=== PATIENT | male | born 1950 | race Caucasian/White ===

== ENCOUNTER 2018-08-14 15:28 | Emergency (ER) | payer OTHER ==
[~2018-08-14] VITALS: Ht 193 cm; Wt 83.0 kg
--- NOTE | 2018-08-14 15:35 | NUR ---
BIBRA 89 C/O LEFT FLANK PAIN, 06/29. PATIENT HAS HX OF KIDNEY STONES. TOOK NORCO 5MG AT 1200 AND MOTRIN 600MG AT 1300 WITH NO RELIEF. A/OX 4, BREATHING EVEN AND UNLABORED. NO SOB, NAD, VITALS STABLE. SAFETY AND COMFORT MEASURES IN PLACE. AWAITING MD ORDERS
--- NOTE | 2018-08-14 15:40 | NUR ---
AT BEDSIDE FOR EVAL.
[2018-08-14] MEDS ORDERED: MORPHINE SULFATE INJ 4 MG/ML DISP.SYRIN ONE (15:56)
[2018-08-14] MEDS ORDERED: ONDANSETRON HCL/PF 4 MG/2 ML VIAL ONE (15:56)
[2018-08-14] MEDS ORDERED: KETOROLAC TROMETHAMINE INJ 30 MG/ML VIAL ONE (15:56)
[2018-08-14] MEDS ORDERED: MORPHINE SULFATE INJ 2 MG/ML DISP.SYRIN IV ONE (16:00)
[2018-08-14] MEDS ORDERED: ONDANSETRON HCL/PF - ER 4 MG/2 ML VIAL IV ONE (16:00)
[2018-08-14] MEDS ORDERED: KETOROLAC TROMETHAMINE INJ 30 MG/ML VIAL IV ONE (16:00)
--- NOTE | 2018-08-14 16:05 | NUR ---
NEW IV STARTED ON LAC, 18G. BLOOD DRAWN AND SENT TO LAB.
[2018-08-14 16:06] LABS: BASOPHILS % (AUTO) 0.4 % (0.0-2.0); EOSINOPHILS % (AUTO) 0.7 % (0.0-6.0); HEMATOCRIT 42 % (39-51); HEMOGLOBIN 13.7 g/dL (13.5-17.5); LYMPHOCYTES # (AUTO) 0.8 /CMM (0.8-4.8); LYMPHOCYTES % (AUTO) 10.2 % (20.0-44.0); MEAN CORPUSCULAR HGB CONC 33 g/dl (31.0-36.0); MEAN CORPUSCULAR VOLUME 89 fL (80-96); MONOCYTES # (AUTO) 0.6 /CMM (0.1-1.30); MONOCYTES % (AUTO) 7.6 % (2.0-12.0); NEUTROPHILS # (AUTO) 5.9 /CMM (1.8-8.9); NEUTROPHILS % (AUTO) 81.1 % (43.0-81.0); PLATELET COUNT (AUTO) 154 /CMM (150-450); RDW COEFFICIENT OF VARIATION 12.3 (11.5-15.0); RED BLOOD CELL COUNT(AUTO) 4.68 MIL/uL (4.5-6.0); WHITE BLOOD COUNT (AUTO) 7.4 K/uL (4.3-11.0)
--- NOTE | 2018-08-14 16:10 | NUR ---
PATIENT MEDICATED PER MD ORDERS.
[2018-08-14 16:15] LABS: CALCIUM, SERUM 8.3 mg/dL (8.5-10.1); CREATININE 1.1 mg/dL (0.6-1.3); POTASSIUM 3.7 mmol/L (3.5-5.1)
[2018-08-14 16:22] LABS: ALBUMIN 3.4 g/dL (3.4-5.0); BILIRUBIN,DIRECT 0.2 mg/dL (0.0-0.2); BILIRUBIN,TOTAL 0.8 mg/dL (0.2-1.0); TOTAL PROTEIN, SERUM 6.2 g/dL (6.4-8.2)
[2018-08-14 16:58] VITALS: BP 118/75
--- NOTE | 2018-08-14 17:00 | NUR ---
IV removed. Catheter intact and site benign. Pressure and 4x4 applied to site. No bleeding noted.Patient discharged to home in stable condition. Written and verbal after care instructions given. Patient verbalizes understanding of instruction.
== END 2018-08-14 17:12 | disposition home or self-care (01) ==
LOC: ER 15:32
DX: N23 Unspecified renal colic (principal); F10.10 Alcohol abuse, uncomplicated; N40.0 Benign prostatic hyperplasia without lower urinary tract symptoms; Y90.9 Presence of alcohol in blood, level not specified; Z87.442 Personal history of urinary calculi; Z98.890 Other specified postprocedural states
CPT/HCPCS: 80048; 80076; 83690; 85025; 96374; 96375; 99284; A4606; J1885; J2270; J2405 ×2; Z7610

== ENCOUNTER 2019-06-26 04:02 | Emergency (ER) | payer OTHER, MEDICAID ==
[~2019-06-26] VITALS: Ht 193 cm; Wt 79.4 kg
--- NOTE | 2019-06-26 04:05 | NUR ---
TO BED 4 BIB PARAMEDICS C/OP LOWER ABDOMINAL PAIN SINCE MIDNIGHT. HX OF KIDNEY STONES. PT AAOX4 NO ACUTE DISTRESS NOTED, RESP EVEN AND UNLABORED. PT UNABLE TO PROVIDE URINE SAMPLE AT THIS TIME. PENDING ER MD STORM.
--- NOTE | 2019-06-26 04:07 | NUR ---
ER MD AT BEDSIDE TO EVAL PT WITH ORDERS RECEIVED.
[2019-06-26] MEDS ORDERED: KETOROLAC TROMETHAMINE INJ 30 MG/ML VIAL ONE (04:20)
[2019-06-26] MEDS ORDERED: ONDANSETRON HCL/PF 4 MG/2 ML VIAL ONE (04:20)
[2019-06-26] MEDS ORDERED: ONDANSETRON HCL/PF 4 MG/2 ML VIAL IVP ONE (04:30)
[2019-06-26] MEDS ORDERED: KETOROLAC TROMETHAMINE INJ 30 MG/ML VIAL IV ONE (04:30)
[2019-06-26] MEDS ORDERED: IV NS 0.9% 1,000 ML BAG IV ONE (04:30)
--- NOTE | 2019-06-26 04:34 | NUR ---
pt had a norco at home which reduced his pain level hence toradol is held per pt's request. made aware
[2019-06-26 04:46] LABS: BASOPHILS % (AUTO) 0.8 % (0.0-2.0); EOSINOPHILS % (AUTO) 1.7 % (0.0-6.0); HEMATOCRIT 43 % (39-51); HEMOGLOBIN 14.3 g/dL (13.5-17.5); LYMPHOCYTES # (AUTO) 1.4 /CMM (0.8-4.8); LYMPHOCYTES % (AUTO) 28.6 % (20.0-44.0); MEAN CORPUSCULAR HGB CONC 33 g/dl (31.0-36.0); MEAN CORPUSCULAR VOLUME 89 fL (80-96); MONOCYTES # (AUTO) 0.4 /CMM (0.1-1.30); MONOCYTES % (AUTO) 7.8 % (2.0-12.0); NEUTROPHILS % (AUTO) 61.1 % (43.0-81.0); PLATELET COUNT (AUTO) 166 /CMM (150-450); RED BLOOD CELL COUNT(AUTO) 4.84 MIL/uL (4.5-6.0); WHITE BLOOD COUNT (AUTO) 4.9 K/uL (4.3-11.0)
[2019-06-26 04:59] LABS: ALBUMIN 3.4 g/dL (3.4-5.0); BILIRUBIN,DIRECT 0.1 mg/dL (0.0-0.2); BILIRUBIN,TOTAL 0.6 mg/dL (0.2-1.0); CALCIUM, SERUM 8.9 mg/dL (8.5-10.1); CREATININE 0.9 mg/dL (0.6-1.3); POTASSIUM 3.5 mmol/L (3.5-5.1); TOTAL PROTEIN, SERUM 6.5 g/dL (6.4-8.2)
[2019-06-26 05:10] LABS: APPEARANCE,URINE Slightly Cloudy (CLEAR); BILIRUBIN,URINE Negative (NEGATIVE); BLOOD, URINE Large Ery/uL (NEGATIVE); COLOR,URINE Yellow (YELLOW); KETONES,URINE 15 (NEGATIVE); LEUKOCYTE ESTERASE ,URINE Moderate (NEGATIVE); NITRITE, URINE Negative (NEGATIVE); PROTEIN,URINE Trace mg/dl (NEGATIVE); UGLUCOSE Negative (NEGATIVE); UROBILINOGEN,URINE 0.2 EU/dL (0.2)
[2019-06-26 05:18] LABS: BACTERIA,URINE None seen /HPF (None Seen); SQUAMOUS EPITHELIAL CELL,UR Few /HPF (None Seen)
--- NOTE | 2019-06-26 05:52 | NUR ---
US TECH AT THE BED SIDE
--- NOTE | 2019-06-26 06:22 | NUR ---
Patient is resting comfortably in bed with eyes closed. Easily aroused. VSS
--- NOTE | 2019-06-26 08:00 | NUR ---
PATIENT AA/OX4, BREATHING EVEN AND UNLABORED, NO SOB NOTED. DENIES PAIN AT THIS TIME. IV removed. Catheter intact and site benign. Pressure and 4x4 applied to site. No bleeding noted. Patient discharged to home in stable condition. Written and verbal after care instructions given. Patient verbalizes understanding of instruction.
[2019-06-26 08:06] VITALS: BP 112/75
== END 2019-06-26 08:06 | disposition home or self-care (01) ==
LOC: ER 04:03
DX: R10.30 Lower abdominal pain, unspecified (principal); F10.10 Alcohol abuse, uncomplicated; Y90.9 Presence of alcohol in blood, level not specified; Z87.442 Personal history of urinary calculi
CPT/HCPCS: 36415; 74176; 76770; 80048; 80076; 81001; 85025; 87077; 87086; 87186; 96374; 96375; 99284; J1885; J2405; J7030; 81000-TC

== ENCOUNTER 2019-11-22 04:44 | Emergency (ER) | payer OTHER, MEDICAID ==
[~2019-11-22] VITALS: Ht 193 cm; Wt 79.4 kg
--- NOTE | 2019-11-22 05:03 | NUR ---
SEEN AND EXAMINED BY
[2019-11-22 05:58] LABS: BASOPHILS % (AUTO) 0.4 % (0.0-2.0); EOSINOPHILS % (AUTO) 0.6 % (0.0-6.0); HEMATOCRIT 41 % (39-51); HEMOGLOBIN 13.4 g/dL (13.5-17.5); LYMPHOCYTES # (AUTO) 0.8 /CMM (0.8-4.8); LYMPHOCYTES % (AUTO) 11.5 % (20.0-44.0); MEAN CORPUSCULAR HGB CONC 33 g/dl (31.0-36.0); MEAN CORPUSCULAR VOLUME 89 fL (80-96); MONOCYTES # (AUTO) 0.5 /CMM (0.1-1.30); MONOCYTES % (AUTO) 6.9 % (2.0-12.0); NEUTROPHILS # (AUTO) 5.9 /CMM (1.8-8.9); NEUTROPHILS % (AUTO) 80.6 % (43.0-81.0); PLATELET COUNT (AUTO) 167 /CMM (150-450); RED BLOOD CELL COUNT(AUTO) 4.62 MIL/uL (4.5-6.0); WHITE BLOOD COUNT (AUTO) 7.3 K/uL (4.3-11.0)
--- NOTE | 2019-11-22 06:05 | NUR ---
PT CAME TO ER BED 7 WITH C/O SHARP ABDOMINAL PAIN. PT STATES THAT HE HAS A HX OF GALLBLADDER STONES AND ENLARGED PROSTATE. PT CURRENTLY DENIES PAIN. UNABLE TO PROVIDE URINE AT THIS TIME. AAOX.4 NO SOB. BREATHING EVENLY ND UNLABORED. CONNECTED TO THE MONITOR
[2019-11-22 06:08] LABS: CALCIUM, SERUM 8.6 mg/dL (8.5-10.1); CREATININE 0.9 mg/dL (0.6-1.3); POTASSIUM 3.9 mmol/L (3.5-5.1)
--- NOTE | 2019-11-22 06:09 | NUR ---
URINE COLLECTED AND SENT TO LAB
[2019-11-22 06:13] LABS: APPEARANCE,URINE Cloudy (CLEAR); BILIRUBIN,URINE Negative (NEGATIVE); BLOOD, URINE Large Ery/uL (NEGATIVE); COLOR,URINE Dark (YELLOW); KETONES,URINE Negative (NEGATIVE); LEUKOCYTE ESTERASE ,URINE Large (NEGATIVE); NITRITE, URINE Negative (NEGATIVE); PROTEIN,URINE 30 mg/dl (NEGATIVE); UGLUCOSE Negative (NEGATIVE); UROBILINOGEN,URINE 0.2 EU/dL (0.2)
[2019-11-22 06:20] LABS: ALBUMIN 3.4 g/dL (3.4-5.0); BILIRUBIN,DIRECT 0.1 mg/dL (0.0-0.2); BILIRUBIN,TOTAL 0.5 mg/dL (0.2-1.0); TOTAL PROTEIN, SERUM 6.5 g/dL (6.4-8.2)
[2019-11-22 07:44] LABS: BACTERIA,URINE Moderate /HPF (None Seen); RBC,URINE TOO NUMEROUS TO COUN /HPF (0-2); WBC,URINE 21-50 /HPF (0-3)
[2019-11-22 07:45] LABS: SQUAMOUS EPITHELIAL CELL,UR Rare /HPF (None Seen)
[2019-11-22 08:21] VITALS: BP 111/68
== END 2019-11-22 08:22 | disposition home or self-care (01) ==
LOC: ER 04:45
DX: R10.31 Right lower quadrant pain (principal); N40.0 Benign prostatic hyperplasia without lower urinary tract symptoms; Z87.442 Personal history of urinary calculi
CPT/HCPCS: 36415; 80048-TC; 80076-TC; 81000-TC; 83690-TC; 85025-TC; 87086-TC; 87186-TC

== ENCOUNTER 2020-01-08 12:46 | Emergency (ER) | payer OTHER, MEDICAID ==
[~2020-01-08] VITALS: Ht 193 cm; Wt 81.6 kg
--- NOTE | 2020-01-08 13:18 | NUR ---
c/o RLQ pain started 10am, Hx of kidney stone, / ps took norco 5/325 mg 1 tab not helping. Patient a/ox4, breathing even and unlabored, no sob noted, will continue to monitor.
--- NOTE | 2020-01-08 13:45 | NUR ---
PATIENT TAKEN TO CT
[2020-01-08] MEDS ORDERED: ONDANSETRON HCL/PF 4 MG/2 ML VIAL IVP ONE (14:00)
[2020-01-08] MEDS ORDERED: KETOROLAC TROMETHAMINE INJ 30 MG/ML VIAL IV ONE ×2 (14:00→15:30)
[2020-01-08] MEDS ORDERED: IV NS 0.9% 500 ML BAG IV ONE (14:00)
[2020-01-08] MEDS ORDERED: KETOROLAC TROMETHAMINE 15 MG/ML VIAL ONE (14:05)
[2020-01-08] MEDS ORDERED: ONDANSETRON HCL/PF 4 MG/2 ML VIAL ONE (14:06)
[2020-01-08 14:08] LABS: BASOPHILS % (AUTO) 0.2 % (0.0-2.0); HEMATOCRIT 43 % (39-51); HEMOGLOBIN 13.8 g/dL (13.5-17.5); LYMPHOCYTES # (AUTO) 0.4 /CMM (0.8-4.8); LYMPHOCYTES % (AUTO) 3.5 % (20.0-44.0); MEAN CORPUSCULAR HGB CONC 32 g/dl (31.0-36.0); MEAN CORPUSCULAR VOLUME 90 fL (80-96); MONOCYTES # (AUTO) 0.6 /CMM (0.1-1.30); NEUTROPHILS % (AUTO) 91.3 % (43.0-81.0); PLATELET COUNT (AUTO) 170 /CMM (150-450); RED BLOOD CELL COUNT(AUTO) 4.75 MIL/uL (4.5-6.0)
[2020-01-08 14:17] LABS: CALCIUM, SERUM 8.8 mg/dL (8.5-10.1); CREATININE 1.1 mg/dL (0.6-1.3)
[2020-01-08 14:23] LABS: ALBUMIN 3.3 g/dL (3.4-5.0); BILIRUBIN,DIRECT 0.1 mg/dL (0.0-0.2); BILIRUBIN,TOTAL 0.6 mg/dL (0.2-1.0); TOTAL PROTEIN, SERUM 6.5 g/dL (6.4-8.2)
[2020-01-08 14:28] LABS: APPEARANCE,URINE Clear (CLEAR); BILIRUBIN,URINE Negative (NEGATIVE); BLOOD, URINE Moderate Ery/uL (NEGATIVE); COLOR,URINE Yellow (YELLOW); KETONES,URINE 15 (NEGATIVE); LEUKOCYTE ESTERASE ,URINE Small (NEGATIVE); NITRITE, URINE Negative (NEGATIVE); PROTEIN,URINE 30 mg/dl (NEGATIVE); UGLUCOSE Negative (NEGATIVE); UROBILINOGEN,URINE 0.2 EU/dL (0.2)
[2020-01-08 14:29] LABS: BACTERIA,URINE Few /HPF (None Seen); SQUAMOUS EPITHELIAL CELL,UR Rare /HPF (None Seen)
--- NOTE | 2020-01-08 14:34 | NUR ---
CALLED DR. MAITE GARCES [phone]
--- NOTE | 2020-01-08 15:13 | NUR ---
CALLED DR. MAITE GARCES [phone]
[2020-01-08] MEDS ORDERED: KETOROLAC TROMETHAMINE INJ 30 MG/ML VIAL ONE (15:44)
--- NOTE | 2020-01-08 16:13 | NUR ---
[place] BECKI [phone]
--- NOTE | 2020-01-08 16:57 | NUR ---
GOT BED 114-2
--- NOTE | 2020-01-08 17:12 | NUR ---
per md, keep patient NPO
--- NOTE | 2020-01-08 17:29 | NUR ---
REPORT GIVEN TO ANABEL BECK FOR SHERRELL.
--- NOTE | 2020-01-08 17:30 | NUR ---
CALL BACK FROM DR BUTTERFIELD, SPOKE WITH DR MONTENEGRO,ADMISSION CANCELLED. DR BUTTERFIELD WANTS PATIENT TRANSFERED SINCE HOSPITAL IS NOT EQUIPPED FOR LITHOTRIPSY.
[2020-01-08] MEDS ORDERED: TAMS-12 PO (17:34)
[2020-01-08] MEDS ORDERED: HYDR-3980 PO (17:34)
[2020-01-08] MEDS ORDERED: ONDA4TAB11 PO (17:34)
--- NOTE | 2020-01-08 18:34 | NUR ---
SPOKE WITH BECKI FOR CASE TO BE CANCELED FOR TONIGHT. CALLED HOUSE SUP TO INFORM.
--- NOTE | 2020-01-08 18:45 | NUR ---
SPOKE WITH DESTIN HYDE ANGLE SHEAR SET UP OPERATOR WORKING NOW UNTIL 2299, PATIENT WILL BE TX TO [facility],JUST WAITING ON HOSPITALIST TO SPEAK WITH DR MONTENEGRO. MARY ELLEN'S DIRECT LINE IS [phone]
--- NOTE | 2020-01-08 20:02 | NUR ---
Patient is resting comfortably in bed with eyes closed. Easily aroused. VSS.
--- NOTE | 2020-01-08 20:24 | NUR ---
PT ACCEPTED TO [facility] BY DR OMER. ROOM 742. # FOR REPORT [phone]. PENDING ETA.
--- NOTE | 2020-01-08 20:33 | NUR ---
[facility] E[facility]: [phone] [facility]
--- NOTE | 2020-01-08 21:22 | NUR ---
REPORT GIVEN TO EBONY MONTE FOR SHERRELL
[2020-01-08 22:54] VITALS: BP 122/70
--- NOTE | 2020-01-08 22:54 | NUR ---
REPORT GIVEN TO TRANSPORT
== END 2020-01-08 22:54 | disposition home or self-care (01) ==
LOC: ER 12:46 → MEDSG1 17:25 → UNDOADMIN 17:25 → ER 22:54
DX: N13.5 Crossing vessel and stricture of ureter without hydronephrosis (principal); N20.1 Calculus of ureter; Z87.442 Personal history of urinary calculi; Z79.899 Other long term (current) drug therapy
CPT/HCPCS: 36415; 74176; 80048; 80076; 81001; 83690; 85025; 85730; 96374; 96375; 96376; 99285; J1885 ×2; J2405; J7030; J7040; 81000-TC

== ENCOUNTER 2020-02-01 01:16 | Emergency (ER) | payer OTHER, MEDICAID ==
[~2020-02-01] VITALS: Ht 193 cm; Wt 81.6 kg
[~2020-02-01 01:16] MED LIST: HYDR-3980 PO; ONDA4TAB11 PO; TAMS-12 PO
[2020-02-01] MEDS ORDERED: KETOROLAC TROMETHAMINE 15 MG/ML VIAL ONE (01:31)
[2020-02-01] MEDS: KETOROLAC TROMETHAMINE INJ 30 MG/ML VIAL IV ONE (01:31)
[2020-02-01] MEDS ORDERED: ONDANSETRON HCL/PF 4 MG/2 ML VIAL ONE (01:31)
[2020-02-01] MEDS: ONDANSETRON HCL/PF 4 MG/2 ML VIAL IVP ONE (01:32)
[2020-02-01 01:45] LABS: BASOPHILS % (AUTO) 0.6 % (0.0-2.0); EOSINOPHILS % (AUTO) 1.2 % (0.0-6.0); HEMATOCRIT 41 % (39-51); LYMPHOCYTES % (AUTO) 24.7 % (20.0-44.0); MEAN CORPUSCULAR HGB CONC 32 g/dl (31.0-36.0); MEAN CORPUSCULAR VOLUME 89 fL (80-96); MONOCYTES # (AUTO) 0.7 /CMM (0.1-1.30); MONOCYTES % (AUTO) 8.3 % (2.0-12.0); NEUTROPHILS # (AUTO) 5.2 /CMM (1.8-8.9); NEUTROPHILS % (AUTO) 65.2 % (43.0-81.0); PLATELET COUNT (AUTO) 218 /CMM (150-450); RED BLOOD CELL COUNT(AUTO) 4.61 MIL/uL (4.5-6.0)
[2020-02-01 01:53] LABS: CALCIUM, SERUM 8.7 mg/dL (8.5-10.1); CREATININE 1.1 mg/dL (0.6-1.3); POTASSIUM 3.8 mmol/L (3.5-5.1)
--- NOTE | 2020-02-01 01:54 | NUR ---
PATIENT CAME TO ER BED 2 C/O LEFT FLANK PAIN SINCE 2199. PATIENT STATES THAT HE HAS HX OF KIDNEY STONES. PATIENT TOOK NORCO, WITH UNKNOWN DOSAGE FOR PAIN WITH NO RELIEF. AAOX4. NO SOB. BREATHING EVENLY AND UNLABORED ON ROOM AIR. CONNECTED TO MONITOR.
[2020-02-01] MEDS ORDERED: CT SWABBABLE VALVE TRANS SET 1 EA INFUS.SET MC ONE (02:04)
[2020-02-01] MEDS ORDERED: IV NS 0.9% 250 ML IV ONE (02:04)
[2020-02-01] MEDS ORDERED: IOHEXOL-300 100 ML VIAL IV ONE (02:04)
--- NOTE | 2020-02-01 02:10 | NUR ---
PATIENT TO CT
[2020-02-01 02:29] LABS: APPEARANCE,URINE Cloudy (CLEAR); BILIRUBIN,URINE Negative (NEGATIVE); BLOOD, URINE Moderate Ery/uL (NEGATIVE); COLOR,URINE Light yellow (YELLOW); KETONES,URINE Negative (NEGATIVE); LEUKOCYTE ESTERASE ,URINE Large (NEGATIVE); NITRITE, URINE Negative (NEGATIVE); PH,URINE 7.5 (5.0-8.0); PROTEIN,URINE 30 mg/dl (NEGATIVE); UGLUCOSE Negative (NEGATIVE); UROBILINOGEN,URINE 0.2 EU/dL (0.2)
[2020-02-01] MEDS ORDERED: MORPHINE SULFATE INJ 4 MG/ML DISP.SYRIN ONE (02:47)
[2020-02-01] MEDS ORDERED: MORPHINE SULFATE INJ 2 MG/ML DISP.SYRIN ONE (02:47)
[2020-02-01] MEDS: MORPHINE SULFATE INJ 2 MG/ML DISP.SYRIN IV ONE (02:52)
[2020-02-01 03:00] LABS: RBC,URINE 20-25 /HPF (0-2); WBC,URINE 21-50 /HPF (0-3)
[2020-02-01 03:01] LABS: BACTERIA,URINE Few /HPF (None Seen); SQUAMOUS EPITHELIAL CELL,UR Rare /HPF (None Seen)
--- NOTE | 2020-02-01 04:13 | NUR ---
PAGED PT'S UROLOGIST, DR. MAITE GARCES
[2020-02-01] MEDS ORDERED: HYDROMORPHONE 1 MG/1 ML DISP.SYRIN ONE ×2 (04:24→07:39)
[2020-02-01] MEDS: HYDROMORPHONE INJ 0.5 MG/0.5 ML SYRINGE IV ONE ×2 (04:29→07:43)
--- NOTE | 2020-02-01 05:09 | NUR ---
PAGED DR. MAITE GARCES
--- NOTE | 2020-02-01 05:13 | NUR ---
PATIENT IS ASLEEP. EASILY AROUSED THROUGH TACTILE AND VERBAL STIMULI. BREATHING EVENLY AND UNLABORED ON ROOM AIR. CONNECTED TO MONITOR. CALL LIGHT WITHIN REACH. GIVEN WARM BLANKET FOR COMFORT.
--- NOTE | 2020-02-01 05:55 | NUR ---
CLINICAL INFORMATION GIVEN TO [facility] PRINT DESIGNER ARNOL . PER ARNOL, PT MOST LIKELY GETTING TRANSFERRED DEPENDING ON BED AVAILABILITY.
--- NOTE | 2020-02-01 07:20 | NUR ---
[facility] GOING TO [facility] 757 CALL [phone] X [phone] PER ARNOL. ACCEPTING MD IS BARN.
--- NOTE | 2020-02-01 07:29 | NUR ---
[facility] ETA [phone]
--- NOTE | 2020-02-01 07:37 | NUR ---
Report given to Ortiz BECK for SHERRELL.
[2020-02-01 09:45] VITALS: BP 165/88
--- NOTE | 2020-02-01 09:47 | NUR ---
report given to ji emt for transport to [facility]. all belongings and chart sent with patient.
== END 2020-02-01 09:48 | disposition short-term general hospital (02) ==
LOC: ER 01:17
DX: N20.0 Calculus of kidney (principal); K57.32 Diverticulitis of large intestine without perforation or abscess without bleeding
CPT/HCPCS: 36415; 74177; 80048; 81001; 85025; 87086; 96374; 96375; 96376; 99285; J1170 ×2; J1885; J2270 ×2; J2405; J7050; Q9967; 81000-TC

== ENCOUNTER 2020-04-15 13:45 | Emergency (ER) | payer OTHER ==
[~2020-04-15] VITALS: Ht 193 cm; Wt 79.4 kg
--- NOTE | 2020-04-15 13:50 | NUR ---
right eye pain and noted pus x 1 week. Patient a/ox4, breathing even and unlabored, no sob noted. Needs attended. Kept comfortable.
--- NOTE | 2020-04-15 14:17 | NUR ---
Patient discharged to home in stable condition. Written and verbal after care instructions given. Patient verbalizes understanding of instruction.
[2020-04-15 14:18] VITALS: BP 112/69
== END 2020-04-15 14:18 | disposition home or self-care (01) ==
LOC: ER 13:45
DX: H57.89 Other specified disorders of eye and adnexa (principal); Z79.899 Other long term (current) drug therapy

== ENCOUNTER 2020-07-13 17:37 | Emergency (ER) | payer OTHER, MEDICAID ==
[~2020-07-13] VITALS: Ht 193 cm; Wt 77.1 kg
--- NOTE | 2020-07-13 18:24 | NUR ---
PT TO CT ON KATRINA
[2020-07-13 18:26] LABS: BASOPHILS # (AUTO) 0.1 /CMM (0.0-0.2); BASOPHILS % (AUTO) 0.8 % (0.0-2.0); EOSINOPHILS % (AUTO) 1.6 % (0.0-6.0); HEMATOCRIT 37 % (39-51); LYMPHOCYTES # (AUTO) 1.7 /CMM (0.8-4.8); LYMPHOCYTES % (AUTO) 26.8 % (20.0-44.0); MEAN CORPUSCULAR HGB CONC 32 g/dl (31.0-36.0); MEAN CORPUSCULAR VOLUME 85 fL (80-96); MONOCYTES # (AUTO) 0.7 /CMM (0.1-1.30); MONOCYTES % (AUTO) 10.9 % (2.0-12.0); NEUTROPHILS # (AUTO) 3.8 /CMM (1.8-8.9); NEUTROPHILS % (AUTO) 59.9 % (43.0-81.0); PLATELET COUNT (AUTO) 181 /CMM (150-450); RED BLOOD CELL COUNT(AUTO) 4.35 MIL/uL (4.5-6.0); WHITE BLOOD COUNT (AUTO) 6.4 K/uL (4.3-11.0)
[2020-07-13 18:37] LABS: CALCIUM, SERUM 8.7 mg/dL (8.5-10.1); CREATININE 1.6 mg/dL (0.6-1.3); POTASSIUM 4.2 mmol/L (3.5-5.1)
--- NOTE | 2020-07-13 18:39 | NUR ---
BIBS FROM HOME TO ER BED 7. AAOX4. NOT IN RESP DISTRESS, AMBULATORY. CAME IN FOR L FLANK PAIN FOR THE PAST 5 DAYS PROGRESSIVELY GETTING WORSE BEING TODAY THE WORST. PAIN IS 7/10 SHARP THROBBING DESCRIBED IF HE IS PASSING A KIDNEY STONE. MD AT BEDSIDE FOR EVAL. ORDERS RECEIVED NOTED AND CARRIED OUT. IV LINE ESTABLISHED ON LFA 18G. BLOOD DRAWNA AND GIVEN TO BEAUTY OPERATOR
[2020-07-13 18:42] LABS: ALBUMIN 3.4 g/dL (3.4-5.0); BILIRUBIN,DIRECT 0.1 mg/dL (0.0-0.2); BILIRUBIN,TOTAL 0.4 mg/dL (0.2-1.0); TOTAL PROTEIN, SERUM 7.2 g/dL (6.4-8.2)
--- NOTE | 2020-07-13 19:05 | NUR ---
dr petersen called,tx to dr quiroz
--- NOTE | 2020-07-13 19:29 | NUR ---
Patient discharged to home in stable condition. Written and verbal after care instructions given. Patient verbalizes understanding of instruction.IV removed. Catheter intact and site benign. Pressure and 4x4 applied to site. No bleeding noted. Pt ambulatory with a steady gait
[2020-07-13 19:31] VITALS: BP 120/71
== END 2020-07-13 19:31 | disposition home or self-care (01) ==
LOC: ER 17:45
DX: N13.2 Hydronephrosis with renal and ureteral calculous obstruction (principal); Z87.442 Personal history of urinary calculi; Z96.0 Presence of urogenital implants; Z79.899 Other long term (current) drug therapy
CPT/HCPCS: 36415; 80048-TC; 80076-TC; 83690-TC; 85025-TC

== ENCOUNTER 2020-10-22 01:00 | Emergency (ER) | payer OTHER, MEDICAID ==
[~2020-10-22] VITALS: Ht 193 cm; Wt 77.1 kg
--- NOTE | 2020-10-22 01:30 | NUR ---
BIBS FOR C/O LLQ / L FLANK ABD PAIN . PT REPORTED HS OF KIDNEY STONE W/ URETHRAL STENT. THE STENTS WERE REMOVED AT A UROLOGIST CLINIC AROUND 1400 AND AROUND 1900 HE STARTED FEELING THE PAIN. PT AMBULATED TO THE BATHROOM BUT ONLY ABLE TO PROVIDED A LITTLE BIT OF URINE SAMPLE. PT WAS PLACED IN BED 3. ON MONITOR, VSS.
[2020-10-22 01:43] LABS: BILIRUBIN,URINE Negative (NEGATIVE); BLOOD, URINE Trace-lysed Ery/uL (NEGATIVE); COLOR,URINE YELLOW (YELLOW); LEUKOCYTE ESTERASE ,URINE Moderate (NEGATIVE); NITRITE, URINE Negative (NEGATIVE); PROTEIN,URINE Negative (NEGATIVE); UGLUCOSE Negative (NEGATIVE); UROBILINOGEN,URINE 0.2 EU/dL (0.2)
[2020-10-22] MEDS ORDERED: ONDANSETRON HCL/PF 4 MG/2 ML VIAL ONE (01:48)
[2020-10-22] MEDS ORDERED: KETOROLAC TROMETHAMINE 15 MG/ML VIAL ONE (01:48)
--- NOTE | 2020-10-22 01:52 | NUR ---
PT WAS TAKEN FOR CT
[2020-10-22 01:53] LABS: BASOPHILS # (AUTO) 0.1 /CMM (0.0-0.2); BASOPHILS % (AUTO) 1.8 % (0.0-2.0); EOSINOPHILS % (AUTO) 0.9 % (0.0-6.0); HEMATOCRIT 39 % (39-51); HEMOGLOBIN 12.8 g/dL (13.5-17.5); LYMPHOCYTES # (AUTO) 1.3 /CMM (0.8-4.8); LYMPHOCYTES % (AUTO) 17.7 % (20.0-44.0); MEAN CORPUSCULAR HGB CONC 32 g/dl (31.0-36.0); MEAN CORPUSCULAR VOLUME 88 fL (80-96); MONOCYTES # (AUTO) 0.5 /CMM (0.1-1.30); MONOCYTES % (AUTO) 7.3 % (2.0-12.0); NEUTROPHILS # (AUTO) 5.4 /CMM (1.8-8.9); NEUTROPHILS % (AUTO) 72.3 % (43.0-81.0); PLATELET COUNT (AUTO) 168 /CMM (150-450); RED BLOOD CELL COUNT(AUTO) 4.46 MIL/uL (4.5-6.0); WHITE BLOOD COUNT (AUTO) 7.4 K/uL (4.3-11.0)
[2020-10-22] MEDS ORDERED: KETOROLAC TROMETHAMINE INJ 30 MG/ML VIAL IV ONE (02:00)
[2020-10-22] MEDS ORDERED: ONDANSETRON HCL/PF 4 MG/2 ML VIAL IVP ONE (02:00)
[2020-10-22 02:07] LABS: BACTERIA,URINE Few /HPF (None Seen); SQUAMOUS EPITHELIAL CELL,UR Few /HPF (None Seen); URINE AMORPHOUS PHOSPHATES Few /HPF (None Seen); WBC,URINE 81-100 /HPF (0-3)
[2020-10-22 02:16] LABS: CALCIUM, SERUM 8.3 mg/dL (8.5-10.1); CREATININE 1.6 mg/dL (0.6-1.3); POTASSIUM 4.2 mmol/L (3.5-5.1)
[2020-10-22 02:28] LABS: ALBUMIN 3.2 g/dL (3.4-5.0); BILIRUBIN,DIRECT 0.2 mg/dL (0.0-0.2); BILIRUBIN,TOTAL 0.5 mg/dL (0.2-1.0); TOTAL PROTEIN, SERUM 6.7 g/dL (6.4-8.2)
--- NOTE | 2020-10-22 02:31 | NUR ---
DR PATRICK AT [facility] SIDE
--- NOTE | 2020-10-22 03:00 | NUR ---
Patient discharged to home in stable condition. Written and verbal after care instructions given. Patient verbalizes understanding of instruction. IV removed. Catheter intact and site benign. Pressure and 4x4 applied to site. No bleeding noted. PT ambulatory with a steady gait
[2020-10-22 03:02] VITALS: BP 128/83
== END 2020-10-22 03:05 | disposition home or self-care (01) ==
LOC: ER 01:00
DX: N13.2 Hydronephrosis with renal and ureteral calculous obstruction (principal); N39.0 Urinary tract infection, site not specified; Z87.442 Personal history of urinary calculi; Z95.5 Presence of coronary angioplasty implant and graft; Z79.899 Other long term (current) drug therapy
CPT/HCPCS: 36415; 51702; 74176; 80048; 80076; 81001; 85025; 87086; 96374; 96375; 99284; J1885; J2405

== ENCOUNTER 2020-12-10 03:38 | Emergency (ER) | payer OTHER ==
[~2020-12-10] VITALS: Ht 190.5 cm; Wt 79.4 kg
--- NOTE | 2020-12-10 03:55 | NUR ---
PT BIBRA 878 FROM HOME C/O ABD PAIN WITH NAUSEA/VOMITING X 2 DAYS. PLACED IN BED 9 ON MONITOR AND PULSE MD JESSICA AT BEDSIDE FOR EVAL. AWAITING ORDERS.
[2020-12-10] MEDS ORDERED: ONDANSETRON HCL/PF 4 MG/2 ML VIAL ONE (04:09)
[2020-12-10] MEDS ORDERED: HYDROMORPHONE 1 MG/1 ML DISP.SYRIN ONE (04:09)
[2020-12-10] MEDS ORDERED: IV LR 1000 ML 1,000 ML IV ONE (04:30)
[2020-12-10] MEDS ORDERED: ONDANSETRON HCL/PF 4 MG/2 ML VIAL IVP ONE (04:30)
[2020-12-10] MEDS ORDERED: HYDROMORPHONE INJ 2 MG/ML DISP.SYRIN IV ONE ×2 (04:30→09:00)
[2020-12-10 04:35] LABS: BASOPHILS % (AUTO) 0.1 % (0.0-2.0); HEMATOCRIT 48 % (39-51); HEMOGLOBIN 15.3 g/dL (13.5-17.5); LYMPHOCYTES # (AUTO) 0.4 /CMM (0.8-4.8); LYMPHOCYTES % (AUTO) 2.2 % (20.0-44.0); MEAN CORPUSCULAR HGB CONC 32 g/dl (31.0-36.0); MEAN CORPUSCULAR VOLUME 89 fL (80-96); MONOCYTES # (AUTO) 1.2 /CMM (0.1-1.30); MONOCYTES % (AUTO) 7.1 % (2.0-12.0); NEUTROPHILS # (AUTO) 15.3 /CMM (1.8-8.9); NEUTROPHILS % (AUTO) 90.6 % (43.0-81.0); PLATELET COUNT (AUTO) 150 /CMM (150-450); RED BLOOD CELL COUNT(AUTO) 5.35 MIL/uL (4.5-6.0); WHITE BLOOD COUNT (AUTO) 16.9 K/uL (4.3-11.0)
[2020-12-10 04:35] LABS: BILIRUBIN,URINE SMALL (NEGATIVE); COLOR,URINE YELLOW (YELLOW); LEUKOCYTE ESTERASE ,URINE TRACE (NEGATIVE); NITRITE, URINE NEGATIVE (NEGATIVE); PH,URINE 6.5 (5.0-8.0); PROTEIN,URINE TRACE mg/dl (NEGATIVE); UGLUCOSE NEGATIVE (NEGATIVE); UROBILINOGEN,URINE 0.2 EU/dL (0.2)
[2020-12-10 04:50] LABS: ALBUMIN 3.1 g/dL (3.4-5.0); BILIRUBIN,DIRECT 0.3 mg/dL (0.0-0.2); BILIRUBIN,TOTAL 1.2 mg/dL (0.2-1.0); CALCIUM, SERUM 8.6 mg/dL (8.5-10.1); CREATININE 1.5 mg/dL (0.6-1.3); TOTAL PROTEIN, SERUM 6.8 g/dL (6.4-8.2)
--- NOTE | 2020-12-10 05:03 | NUR ---
JAMMIEID SWABBED, SENT TO LAB.
[2020-12-10 05:06] LABS: BACTERIA,URINE Few /HPF (None Seen); SQUAMOUS EPITHELIAL CELL,UR Few /HPF (None Seen)
[2020-12-10 05:07] LABS: HYALINE CASTS, URINE Few /LPF (None Seen); MUCUS,URINE Few /LPF (None Seen)
--- NOTE | 2020-12-10 05:36 | NUR ---
Call from lab. Rapid covid negative.
[2020-12-10] MEDS ORDERED: PIPERACILLIN /TAZOBACTAM 3.375 G in IV D5W 50 ML IV ONE (06:00)
[2020-12-10] MEDS ORDERED: PIPERACILLIN /TAZOBACTAM 3.375 G VIAL IV ONE (06:02)
--- NOTE | 2020-12-10 07:06 | NUR ---
PT AMBULATED TO THE RESTROOM.
--- NOTE | 2020-12-10 08:05 | NUR ---
attempted to give report to [facility] but nurse leroy is busy and will call us back for report.
[2020-12-10] MEDS ORDERED: HYDROMORPHONE INJ 2 MG/ML DISP.SYRIN ONE (08:09)
--- NOTE | 2020-12-10 08:31 | NUR ---
GOING TO [facility] [phone] CALL [phone] MAN [facility] WILL TRANSPORT ETA IS 30 MINS.
[2020-12-10] MEDS ORDERED: BUPR100T7 PO (08:52)
--- NOTE | 2020-12-10 08:55 | NUR ---
attempted to give report to [facility] but nurse leroy is busy and will call us back for report.
--- NOTE | 2020-12-10 09:01 | NUR ---
report given to larry brandon [facility] for ambulance transport to [facility].
--- NOTE | 2020-12-10 09:09 | NUR ---
report given to leroy sanchez at [facility] for gurdeep.
--- NOTE | 2020-12-10 09:38 | NUR ---
pt ;eft with video production assistant for transport to [facility]
[2020-12-10 09:46] VITALS: BP 107/68
== END 2020-12-10 09:46 | disposition short-term general hospital (02) ==
LOC: ER 03:40
DX: K51.00 Ulcerative (chronic) pancolitis without complications (principal); N21.0 Calculus in bladder; N20.0 Calculus of kidney; H92.02 Otalgia, left ear; Z85.46 Personal history of malignant neoplasm of prostate; Z20.822 Contact with and (suspected) exposure to COVID-19
CPT/HCPCS: 36415; 74176; 76705; 80048; 80076; 81001; 83690; 85025; 85730; 87081; 87086; 87426; 96361; 96365; 96375; 96376; 99285; J1170 ×2; J2405; J2543; J7060; J7120 ×2; C9803